=== PATIENT | female | born 1945 | race Caucasian/White ===

== ENCOUNTER 2018-08-12 10:01 | Observation (INO) | payer MEDICARE, OTHER ==
--- NOTE | 2018-08-12 10:21 | ED ---
Neurological HPI - HPI Summary HPI Summary: The pt is a 72 y/o female accompanied by her caregiver presenting to [facility] c/o Left sided tingling and weakness. She denies numbness. The care management specialist visited the patient at home at 08:00 am .The pt had difficulty moving her LUE. After breakfast, the pt was dragging her L foot and had difficulty extending her LUE. She says that the pt talks rapidly and is inattentive, which is different from baseline. Her reports that the pt was "acting manic" today at 07:00 hrs today. She was seen at [facility] and referred to the ED. Her last well known time is 11:00 hrs yesterday. Home Medications Medication Instructions Recorded Confirmed Type oxyCODONE/Acetamin 5/325 MG* 1 - 2 tab PO Q4H PRN #40 tab MDD 10 05/17/16 Rx [Percocet 5/325 TAB*] - History of Current Complaint Chief Complaint: EDAltMentalStatus Stated Complaint: TINGLING AND WEAKNESS ON LEFT SIDE Time Seen by Provider: 08/12/18 10:10 Last Known Well Date: 11:00 hrs 08/11/2018 Hx Obtained From: Family/Social Sciences Chair Onset/Duration: Sudden Onset, Resolved Timing: Sudden Onset Number of Seizures: 0 Neurological Deficit Location: LUE, LLE Pain Intensity: 0 Pain Scale Used: 0-10 Numeric Character: Weak Number of Episodes: 0 Associated Signs and Symptoms: Positive: Weakness. Negative: Numbness - Allergy/Home Medications Allergies/Adverse Reactions: Allergies Allergy/AdvReac Type Severity Reaction Status Date / Time No Known Allergies Allergy Verified 05/15/16 12:32 Home Medications: Home Medications Bupropion XL* [Wellbutrin XL *] 150 mg PO QAM 08/12/18 [History Confirmed ] Mirtazapine TAB* [Remeron TAB*] 15 mg PO BEDTIME 08/12/18 [History Confirmed 03/23] QUEtiapine TAB* [Seroquel 25 MG TAB*] 50 mg PO QPM 08/12/18 [History Confirmed 08/12/18] QUEtiapine XR TAB* [Seroquel Xr 50 MG TAB*] 50 mg PO QAM 08/12/18 [History Confirmed 08/12/18] PMH/Surg Hx/FS Hx/Imm Hx Previously Healthy: No Endocrine/Hematology History: Denies: Hx Anticoagulant Therapy, Hx Blood Disorders, Hx Diabetes, Hx Sickle Cell Disease Cardiovascular History: Denies: Hx Angioplasty, Hx Cardiac Arrest, Hx Congestive Heart Failure, Hx Hypertension, Other Cardiovascular Problems/Disorders Respiratory History: Denies: Other Respiratory Problems/Disorders GI History: Denies: Hx Gastroesophageal Reflux Disease, Other GI Disorders History: Denies: Hx Renal Disease, Other Problems/Disorders Musculoskeletal History: Reports: Hx Arthritis - HANDS Sensory History: Reports: Hx Contacts or Glasses Denies: Hx Hearing Aid Opthamlomology History: Reports: Hx Contacts or Glasses Neurological History: Reports: Other Neuro Impairments/Disorders - currently undergoing neurology consults for neurologic changes Denies: Hx CVA, Hx Dementia, Hx Migraine, Hx Transient Ischemic Attacks (TIA) Psychiatric History: Denies: Hx Anxiety, Hx Depression, Hx Substance Abuse - Cancer History Cancer Type, Location and Year: None reported - Surgical History Surgery Procedure, Year, and Place: RIGHT LEG VARICOSE VEINS SURGERY - 2006 [facility] Hx Anesthesia Reactions: No Infectious Disease History: No Infectious Disease History: Denies: Traveled Outside the [place] in Last 30 Days - Family History Known Family History: Positive: Other - Parkinson's - Social History Occupation: Retired Lives: With Family Alcohol Use: Daily Hx Substance Use: Yes Substance Use Type: Reports: Marijuana - OCCASIONALLY Smoking Status (MU): Former Smoker - 2-3 X YEAR Review of Systems Positive: no symptoms reported Musculoskeletal: Other - Positive: Difficulty extending her LUE, Dragging of the LLE Neurological: Negative - Tingling Positive: Weakness. Negative: Numbness Positive: Other - Positive: 1 manic episode reported All Other Systems Reviewed And Are Negative: Yes Physical Exam - Summary Physical Exam Summary: Appearance: The patient is well-nourished in no acute distress and in no acute pain. She perseverates with speech. Gait is normal. Skin: The skin is warm and dry and skin color reflects adequate perfusion. HEENT: The head is normocephalic and atraumatic. The pupils are equal and reactive. The conjunctivae are clear and without drainage. Nares are patent and without drainage. Mouth reveals moist mucous membranes and the throat is without erythema and exudate. The external ears are intact. The ear canals are patent and without drainage. The tympanic membranes are intact. Neck: The neck is supple with full range of motion and non-tender. There are no carotid bruits. There is no neck vein distension. Respiratory: Chest is non-tender. Lungs are clear to auscultation and breath sounds are symmetrical and equal. Cardiovascular: Heart is regular rate and rhythm. There is no murmur or rub auscultated. There is no peripheral edema and pulses are symmetrical and equal. Abdomen: The abdomen is soft and non-tender. There are normal bowel sounds heard in all four quadrants and there is no organomegaly palpated. Musculoskeletal: There is no back tenderness noted. Extremities are non-tender with full range of motion. There is good capillary refill. There is no peripheral edema or calf tenderness elicited. Neurological: Patient is alert and oriented to person, place and time. The patient has symmetrical motor strength in all four extremities. Cranial nerves are grossly intact. Deep tendon reflexes are symmetrical and equal in all four extremities. Psychiatric: The patient has an appropriate affect and does not exhibit any anxiety or depression. GCS: 15 ; NIH Stroke Scale is limited Triage Information Reviewed: Yes Vital Signs On Initial Exam: Initial Vitals Temp Pulse Resp BP Pulse Ox 97.2 F 93 18 132/64 100 08/12/18 10:02 08/12/18 10:02 08/12/18 10:02 08/12/18 10:02 08/12/18 10:02 Vital Signs Reviewed: Yes Diagnostics - Vital Signs Vital Signs Temp Pulse Resp BP Pulse Ox 08/12/18 10:02 97.2 F 93 18 132/64 100 - Laboratory Result Diagrams: 08/12/18 10:58 08/12/18 10:58 Lab Statement: Any lab studies that have been ordered have been reviewed, and results considered in the medical decision making process. - Radiology CXR Radiology Interpretation Completed By: Radiologist Summary of Radiographic Findings: IMPRESSION: NO ACTIVE CARDIOPULMONARY DISEASE. The ED physician reviewed this radiology report. - CT Brain CT CT Interpretation Completed By: Radiologist - IMPRESSION: NO EVIDENCE FOR GROSS ACUTE INFARCT, MASS EFFECT OR HEMORRHAGE. Summary of CT Findings: IMPRESSION: NO EVIDENCE FOR GROSS ACUTE INFARCT, MASS EFFECT OR HEMORRHAGE. The ED physician reviewed this radiology report. - EKG 11:29 Cardiac Rate: NL - 79 bpm EKG Rhythm: Sinus Rhythm ST Segment: Normal Ectopy: None NIH Scale - NIH Scale Level of Consciousness: Alert/Keenly Responsive Ask Patient the Month and His/Her Age: Both Correct Ask Pt to Open/Close Eyes and Make Up Editor/Release Non-Paretic Hand: Both Correctly Best Gaze (Only Horizontal Eye Movement): Normal Visual Field Testing: No Visual Loss Facial Paresis-Pt to Smile & Close Eyes or Grimace Symmetry: Normal/Symmetrical Motor Function - Right Arm: No Drift-Holds 10 Seconds Motor Function - Left Arm: No Drift-Holds 10 Seconds Motor Function - Right Leg: No Drift-Holds 10 Seconds Motor Function - Left Leg: No Drift-Holds 10 Seconds Limb Ataxia-Must be out of Proportion to Weakness Present: Absent Sensory (Use Pinprick to Test Arms/Legs/Trunk/Face): Normal Best Language (Describe Picture, Name Items): No Aphasia Dysarthria (Read Several Words): Normal Extinction and Inattention: No Abnormality Total Score: 0 NIH Stroke Scale Comment: NIH is limited Course/Dx - Course Course Of Treatment: Ms. Taylor is a very poor historian secondary to dementia. She also was not very cooperative to the exam. I cannot find an obvious focal deficit with a limited neuro exam. Initial workup including CT and labs is negative and I consult with Dr. Breaux. He recommended admission for further workup and I contacted the hospitalist. - Diagnoses Provider Diagnoses: TIA (transient ischemic attack) - Physician Notifications Discussed Care Of Patient With: Alexis Breaux - Neurologist Instructed by Provider To: Will See In ED - Dr. Breaux saw the pt in the ED. The hospitalist agreed to admit the pt. Discharge - Sign-Out/Discharge Documenting (check all that apply): Patient Departure - Discharge Plan Condition: Stable Disposition: ADMITTED TO [facility] - Billing Disposition and Condition Condition: STABLE Disposition: Admitted to [facility] - Attestation Statements Document Initiated by Scribe: Yes Documenting Scribe: Lashell Soler Provider For Whom Ama is Documenting (Include Credential): Dr. Mack Martinez MD Scribe Attestation: Lashell Tolbert , scribed for Dr. Mack Martinez MD on 08/12/18 at 1637. Scribe Documentation Reviewed: Yes Provider Attestation: The documentation as recorded by the scribLashell estrada accurately reflects the service I personally performed and the decisions made by me, Dr. Mack Martinez MD Status of Scribe Document: Viewed
[2018-08-12 11:16] LABS: ABS Basophils 0 10^3/ul (0-0.2); ABS Eosinophils 0 10^3/ul (0-0.6); ABS Lymphocytes 1.5 10^3/ul (1.0-4.8); ABS Monocytes 0.6 10^3/ul (0-0.8); ABS Neutrophils 7.2 10^3/ul (1.5-7.7); ABS Nucleated RBC 0 10^3/ul; Eosinophil % 0.5 %; Hematocrit 40 % (35-47); Hemoglobin 14.2 g/dl (12.0-16.0); Lymphocyte % 16.1 %; Mean Corpuscular HGB Conc 36 g/dl (31-36); Mean Corpuscular Hemoglobin 32 pg (27-31); Mean Corpuscular Volume 90 fL (80-97); Mean Platelet Volume 6.8 fL (7.4-10.4); Nucleated Red Blood Cells % 0.1; Platelet Count 283 10^3/ul (150-450); Red Blood Count 4.43 10^6/ul (4.00-5.40); Red Cell Distribution Width 12 % (10.5-15); White Blood Count 9.3 10^3/ul (3.5-10.8)
[2018-08-12 11:40] LABS: Urine Appearance Turbid; Urine Blood Negative (Negative); Urine Color Amber; Urine Ketones Negative (Negative); Urine Protein Negative (Negative); Urine Specific Gravity 1.015 (1.010-1.030); Urine Urobilinogen Negative (Negative)
[2018-08-12] MEDS ORDERED: Aspirin 81 mg CHEW TAB* 81 MG TAB.CHEW PO ONE (14:12)
--- NOTE | 2018-08-12 16:15 | ECHO ---
Patient: CHUCKY PEREYRA [facility] Rec#: [id number] : 1945 Date: 08/12/2018 Age: 72y Height: 157.48 cm / 62.0 in Weight: 58.97 kg / 130.0 lbs Sex: F BSA: 1.59 Room#: ED8 Admit Date#: 08/12/2018 Type: Inpatient Referring: Griselda Kathleen NP Reading: Kasia Sorenson MD Adjunct History Instructor: Fernanda Allison RDCS CC: Renata Quintero MD Transthoracic Echocardiogram Indication: TIA BP: 119/72 HR: 80 Rhythm: NSR Findings History: Dementia,TIA,former smoker. Technical Comments: The study is technically limited due to the patient's smoking history. Completed at 1520. Left Ventricle: The left ventricular chamber size is decreased. Posterior wall hypertrophy is observed. The estimated ejection fraction is 55-60%. Abnormal left ventricular diastolic function is observed. Left Atrium: The left atrial chamber size is normal. Right Ventricle: The right ventricular cavity size is normal. The right ventricular global systolic function is normal. Right Atrium: The right atrial cavity size is normal. Aortic Valve: The aortic valve is trileaflet. There is no evidence of aortic valve thickening. There is mild aortic regurgitation. There is no evidence of aortic stenosis. Mitral Valve: The mitral valve leaflets are mildly thickened. There is no evidence of mitral regurgitation. There is no evidence of mitral stenosis. Tricuspid Valve: The tricuspid valve leaflets are normal. There is no evidence of tricuspid valve regurgitation. Unable to estimate the right ventricular systolic pressure. There is no tricuspid stenosis. Pulmonic Valve: The pulmonic valve appears normal. There is no evidence of pulmonic regurgitation. There is no pulmonic stenosis. Pericardium: The pericardium appears normal. Aorta: There is no dilatation of the ascending aorta. There is no dilatation of the aortic arch. There is no dilation of the aortic root. Pulmonary Artery: The main pulmonary artery appears normal. Venous: The inferior vena cava appears normal in size. Patient unable to cooperate with sniff. Summary: There was not any prior study for comparison. Conclusions The left ventricular chamber size is decreased. Posterior wall hypertrophy is observed. The estimated ejection fraction is 55-60%. Abnormal left ventricular diastolic function is observed. There is mild aortic regurgitation. Measurements Name Value Normal Range RVIDd (AP) 2D 2.9 cm (0.9 - 2.6) RVDdMajor (2D) 2.3 cm (2.2 - 4.4) RAd ISD 4CH 3.6 cm (3.4 - 4.9) RA (A4C)W 2.5 cm (2.9 - 4.6) IVSd (2D) 1 cm (0.6 - 1) LVPWd (2D) 1.1 cm (0.6 - 1) LVIDd (2D) 3.5 cm (3.6 - 5.4) LVIDs (2D) 2.7 cm - LV FS (2D) 23 % (25 - 45) Aortic Annulus 1.7 cm (1.4 - 2.6) Ao root diameter (2D) 2.3 cm (2.1 - 3.5) Ascending Ao 2.7 cm (2.1 - 3.4) Aortic arch 2.6 cm (1.8 - 3.4) Descending Ao 0.6 cm - LA dimension (AP) 2D 2.6 cm (2.3 - 3.8) LAd ISD 4CH 4.5 cm (2.9 - 5.3) LA ISD 4CH W 3.3 cm (2.5 - 4.5) Name Value Normal Range LA ESV SP 4CH (A/L) 23 ml - LA ESV SP 2CH (A/L) 27 ml - LA ESV BP (A/L) 25 ml - LA ESV BP (A/L) index 15.94 ml/m2 - LA ESV SP 4CH (MOD) 21 ml - LA ESV SP 2CH (MOD) 25 ml - Name Value Normal Range MV E-wave Vmax 0.6 m/sec - MV deceleration time 195 msec - MV A-wave Vmax 0.9 m/sec - MV E:A ratio 0.66 ratio - LV septal e' Vmax 0.07 m/sec - LV lateral e' Vmax 0.09 m/sec - LV E:e' septal ratio 8.57 ratio - LV E:e' lateral ratio 6.67 ratio - Name Value Normal Range AV Vmax 1.6 m/sec - AV VTI 30.6 cm - AV peak gradient 10.45 mmHg - AV mean gradient 4.88 mmHg - LVOT Vmax 1.3 m/sec - LVOT VTI 25.9 cm - LVOT peak gradient 6.35 mmHg - LVOT mean gradient 2.6 mmHg - AR PHT 533 msec - AR peak gradient 65.84 mmHg - Name Value Normal Range IVC diameter 1.5 cm - Name Value Normal Range PV Vmax 1 m/sec - PV peak gradient 3.64 mmHg -
[2018-08-12] MEDS ORDERED: QUEtiapine TAB* 25 MG PO SCH (18:00)
--- NOTE | 2018-08-12 20:14 | CONS ---
NEUROLOGY CONSULTATION: DATE OF CONSULT: 08/12/18 LOCATION: She is in the emergency room. REFERRING PHYSICIAN: Dr. Martinez. CHIEF COMPLAINT: Left-sided weakness. HISTORY OF PRESENT ILLNESS: Mely Taylor is a 72-year-old right-handed woman , who was brought into the hospital by her aide because of weakness on her left side. She was apparently having some difficulty walking and dragging her left foot. Her aide says that she has had weakness in that leg before but it seemed worse than usual. The patient has Alzheimer's disease and is very pleasant and cooperative, but not able to provide any meaningful history. Initial CT scan of the brain was interpreted as normal. There is no prior history of stroke that I am aware of, but the history is limited. PAST MEDICAL HISTORY: Notable for Alzheimer's disease, otherwise unremarkable with limited history. MEDICATIONS: At home, consist of: 1. Remeron 15 mg p.o. q.h.s. 2. Bupropion 150 mg p.o. q.a.m. 3. Quetiapine 50 mg p.o. b.i.d. PHYSICAL EXAM: She is a frail, elderly woman lying in emergency room bed. Temperature 97.2, blood pressures running around 120 to 130 systolic over 70s diastolic, heart rate is in the 80s and seems regular, respiratory rate is 15, and oxygen saturation is 98%. Heart is in a regular rhythm without murmurs. There are no cervical bruits. Neurologic exam: She is alert and pleasantly demented. She tends to repeat everything that is said to her. She answers simple questions and follows simple commands. Pupils react from about 3 down to about 2 mm. Eye movements are full. Visual tang are full to finger counting. Facial musculature is symmetric. Facial sensation to light touch is symmetric. Speech is clear. Motor exam reveals some paratonia, but no spasticity or rigidity. She has antigravity strength in all limbs. Finger taps are slow but symmetrical in the hands. There is no rest tremor. Plantar responses are flexor bilaterally. I did not attempt to ambulate her. LABORATORY DATA: Includes a CBC which is unremarkable and a chemistry profile notable for non-fasting glucose of 112 and otherwise unremarkable. Urinalysis is unremarkable as well. IMPRESSION: Possible worsened left-sided weakness in a patient with advanced Alzheimer's disease. According to her aide, her left side was weaker than it usually is, but there is some baseline weakness anyway. PLAN: We recommend treating her with aspirin at this point in time. She could be put on telemetry to look for atrial fibrillation. Depending upon how aggressive the family wants to be, we could get an MRI scan of her brain or not. I spoke with Dr. Mclaughlin, who she has been a patient in the past and she said that she is a fall risk. I, therefore, do not think any lab evaluation is necessary unless she declines further here in the hospital. [id number]/CPS #: [id number] MTDD
--- NOTE | 2018-08-12 20:48 | HP ---
CC: Dr. Renata Quintero.* HOSPITAL MEDICINE HISTORY AND PHYSICAL: DATE OF ADMISSION: 08/12/18 PRIMARY CARE PHYSICIAN: Dr. Renata Quintero. ATTENDING PHYSICIAN: Dr. Tran Chan * (dictation provided by Griselda Kathleen NP ). CHIEF COMPLAINT: Left-sided weakness, now resolved. HISTORY OF PRESENT ILLNESS: Ms. Taylor is a 72-year-old female with a past medical history of advanced dementia, who presents to the hospital today with concern for left-sided tingling in her arm and worsening left-sided weakness. Ms. Taylor has dementia and therefore is not able to provide a reliable history. Per the report from her and her caregiver, the patient was complaining of tingling in her left arm today. She also seemed to not be able extend the arm fully and they thought perhaps it looked contracted. She also seemed to be dragging her left foot a little bit more than usual. The patient does have left- sided weakness and has had that for about a year, but this symptom seemed much more severe. In the emergency room, Ms. Taylor' symptoms have resolved. She continues to have some mild left-sided weakness, but family feel like this is consistent with her baseline. She had a CT of the brain, showed no evidence of gross acute infarct, mass effect or hemorrhage. She had labs that were unremarkable. Urine shows no evidence of infection. Vitals signs are stable. Chest x-ray shows no acute intrathoracic process. EKG shows a sinus rhythm with no evidence of ischemia. The patient was seen in consultation by Dr. Breaux, who felt based on her symptoms of TIA that an observation stay in the hospital would be appropriate. PAST MEDICAL HISTORY: Dementia. MEDICATIONS: As outpatient are: 1. Mirtazapine 15 mg p.o. at bedtime. 2. Bupropion XL 150 mg p.o. q.a.m. 3. Quetiapine XR 50 mg in the a.m. and quetiapine immediate release 50 mg p.o. q.p.m. ALLERGIES: No known drug allergies. FAMILY HISTORY: Reviewed, noncontributory. SOCIAL HISTORY: No prior alcohol, tobacco, or drug use. The patient lives with her , who is her healthcare proxy. REVIEW OF SYSTEMS: A 14-point review of systems was attempted with Ms. Taylor and all those not mentioned above were negative. Certainly, this was limited by her dementia. PHYSICAL EXAMINATION GENERAL: Ms. Taylor is lying in the bed. She is in no acute distress. VITAL SIGNS: Temperature 97.2, pulse rate 83, respiratory rate 15, O2 saturation 98% on room air, blood pressure 119/72. LUNGS: Clear to auscultation bilaterally with no accessory muscle use and good aeration. HEART: S1, S2. No murmur, rub, or gallop, and regular. ABDOMEN: Soft, nontender with bowel sounds positive x4. EXTREMITIES: No cyanosis or edema. NEURO: She is alert, she is oriented to herself and place. She is constantly repeating things that I say multiple times. She is able to follow commands. She does evidence some pronator drift that is mild in the left upper extremity. The lower extremities appear on gross examination to be equal and symmetric. There is no facial asymmetry or focal weakness. Speech is clear. SKIN: Intact. DIAGNOSTIC STUDIES/LAB DATA: WBC 9.3, hemoglobin 14.2, hematocrit 40, platelet count 283. Sodium 137, potassium 3.9, chloride 103, serum bicarbonate 27, BUN 14, creatinine 0.61, glucose 112, lactic acid 1.3. Urine shows no evidence of infection. CT brain, as per above. Chest x-ray shows no acute process. EKG, again shows sinus rhythm. ASSESSMENT AND PLAN: Ms. Taylor is a 72-year-old female with a past medical history of advanced dementia, who presents today to the hospital with concern for possible worsening of her left-sided weakness, now resolved with concern for transient ischemic attack. Our plans are for observation in the hospital for the followin. Plans are for telemetry monitoring to be observed for atrial fibrillation. Also, an echo has also been recommended. Dr. Breaux at this point does not feel there is an utility to MRI brain and I agree. CT brain is negative, her symptoms have resolved. In terms of her risk factors, her blood pressure is well controlled in the emergency department. We will continue to observe. Her lipid profile will be drawn in the a.m. She has no known history of diabetes. I will add on a hemoglobin A1c. The patient will be given aspirin in the ED and daily. She will have neuro checks. 2. The patient is at high risk for delirium. We will try to avoid any deliriogenic agents and provide supportive care. 3. Code status is DNR. 4. DVT prophylaxis, heparin subcu. TIME SPENT: Approximately 60 minutes was spent on this admission of this patient, more than half the time was spent with the patient at the bedside reviewing the events leading up to this hospitalization with her and her family , performing the physical examination, reviewing the plan of care. GRISELDA KTAHLEEN NP [id number]/CPS #: [id number] NARAYAN
[2018-08-12] MEDS ORDERED: Mirtazapine TAB* 15 MG PO SCH (21:00)
[2018-08-12] MEDS: Heparin VIAL(*) 5000 UNITS/ML VIAL (FIVE THOUSAND) SUBCUT SCH (21:28)
[2018-08-13] MEDS: Heparin VIAL(*) 5000 UNITS/ML VIAL (FIVE THOUSAND) SUBCUT SCH (05:35)
[2018-08-13 07:44] VITALS: BP 133/67
--- NOTE | 2018-08-13 08:17 | PN ---
Subjective Date of Service: 08/13/18 Interval History: Ms. Taylor has advanced dementia but denies any complaint. Her aide is at the bedside and reports that she is at her baseline. Objective Active Medications: Aspirin (Aspirin 81 Mg Chew Tab*) 81 mg PO DAILY KURT Bupropion HCl (Wellbutrin Xl *) 150 mg PO DAILY KURT Heparin Sodium (Porcine) (Heparin Vial(*)) 5,000 units SUBCUT Q8HR KURT Mirtazapine (Remeron Tab*) 15 mg PO BEDTIME KURT Quetiapine Fumarate (Seroquel Tab*) 50 mg PO QPM KURT Quetiapine Fumarate (Seroquel Xr Tab*) 50 mg PO QAM KURT Vital Signs: Temp Pulse Resp BP Pulse Ox 98.3 F 79 16 133/67 100 08/13/18 07:41 08/13/18 07:41 08/13/18 07:41 08/13/18 07:41 08/13/18 07:41 Oxygen Devices in Use Now: None Appearance: Female lying in bed in NAD Eyes: No Scleral Icterus Ears/Nose/Mouth/Throat: Mucous Membranes Moist Neck: Trachea Midline Respiratory: Symmetrical Chest Expansion and Respiratory Effort, Clear to Auscultation Cardiovascular: NL Sounds; No Murmurs; No JVD, No Edema Abdominal: NL Sounds; No Tenderness; No Distention Extremities: No Edema Skin: No Rash or Ulcers Neurological: NL Muscle Strength and Tone, - - Alert and oriented to self Nutrition: Taking PO's Result Diagrams: 08/12/18 10:58 08/12/18 10:58 Assess/Plan/Problems-Billing Assessment: Ms. Taylor is a 72 yo F with a PMH of dementia who was admitted on 08/12/18 with left sided weakness and tingling now resolved with concern for TIA. - Patient Problems (1) TIA (transient ischemic attack) Comment: - CT brain negative - No events noted on telemetry, echo without wall motion - Plan to start aspirin and atorvastatin for stroke prevention, BP well controlled, HgbA1c 5.0, LDL 104 (2) Dementia Comment: - Supportive care (3) DVT prophylaxis Comment: - Heparin Sq. (4) DNR (do not resuscitate) Comment: Status and Disposition: OBV. Discharge to home.
[2018-08-13] MEDS ORDERED: BuPROPion XL* 150 MG TAB.XL PO SCH (09:00)
[2018-08-13] MEDS ORDERED: Aspirin 81 mg CHEW TAB* 81 MG TAB.CHEW PO SCH (09:00)
[2018-08-13] MEDS ORDERED: QUEtiapine XR TAB* 50 MG PO SCH (09:00)
--- NOTE | 2018-08-13 11:22 | DS ---
CC: Dr. Quintero * [facility] MEDICINE DISCHARGE SUMMARY: DATE OF ADMISSION: 08/12/18 DATE OF DISCHARGE: 08/13/18 PRIMARY CARE PHYSICIAN: Dr. Quintero. ATTENDING PHYSICIAN: Dr. Raz Leavitt * (dictation provided by Griselda Kathleen NP). PRIMARY DIAGNOSIS: Transient ischemic attack. SECONDARY DIAGNOSIS: Alzheimer's dementia. MEDICATIONS AT THE TIME OF DISCHARGE: 1. Aspirin 81 mg p.o. q. day. 2. Atorvastatin 40 mg p.o. q. day. 3. Mirtazapine 50 mg p.o. at bedtime. 4. Bupropion XL 150 mg p.o. q.a.m. 5. Quetiapine XR 50 mg p.o. q.a.m. 6. Quetiapine immediate release 50 mg p.o. q.p.m. HOSPITAL COURSE: Ms. Taylor is a 72-year-old female who presented to the emergency room on 08/12/18 with concern for transient worsening of left-sided weakness with left arm tingling. Please see dictated H and P by myself for complete details. In brief, the patient has advanced dementia, but there was concern that the patient had worsening of her left-sided weakness with complaint of left arm tingling, which led to the presentation here for evaluation. In the emergency room, the patient's symptoms had resolved. She had a CT brain, which showed no acute abnormality. The reminder of workup was negative. Ms. Taylor was observed in the hospital overnight. She had no episodes of atrial fibrillation. She had an echocardiogram, which showed normal wall motion and ejection fraction. No valvular abnormalities. Ms. Taylor is medically stable for discharge to home. Her blood pressure is normal. She has a LDL of 104. For that reason, I am starting a moderate dose of atorvastatin for stroke prevention. Her hemoglobin A1c is 5.0. Also plan to start aspirin for stroke prevention as she was not taking this previously. She will be following up with Dr. Quintero as needed after this acute hospitalization. DISPOSITION: Home DIET: Regular ACTIVITY: As tolerated FOLLOW UP PLANS: With Dr. Quintero as indicated within the next 3-7 days. TIME SPENT: Approximately 60 minutes were spent in the discharge of this patient, more than half time spent with the patient at the bedside reviewing the events leading up to this hospitalization, performing the physical examination, and reviewing my plan of care. GRISELDA KATHLEEN NP [id number]/[facility] #: [id number] NARAYAN
== END 2018-08-13 11:20 | disposition home or self-care (01) ==
LOC: ED 10:01 → MEDTELE 13:20
PROVIDERS: ADMIT Hospitalist; ATTEND Internal Medicine
DX: G45.9 Transient cerebral ischemic attack, unspecified (principal); G30.9 Alzheimer's disease, unspecified; F02.80 Dementia in other diseases classified elsewhere, unspecified severity, without behavioral disturbance, psychotic disturbance, mood disturbance, and anxiety; Z79.82 Long term (current) use of aspirin; R53.1 Weakness; Z87.891 Personal history of nicotine dependence
CPT/HCPCS: 36415; 70450; 71045; 80053; 80061; 81003; 83036; 83605; 84484; 85025; 93005; 93306; 99284; A9270-GY; G0378; J1644

== ENCOUNTER 2018-12-22 20:12 | Emergency (ER) | payer MEDICARE, OTHER ==
--- OUTSIDE RECORDS SUMMARY | 2018-12-22 20:31 | XMS REPORT | Continuity of Care Document ---
:1945 External Reference #:[id number] Author Name Lauren Farfan PA-C Address [address] [place] [address] Care Team Providers Name Role Phone Lilly Chiang MD Care Team Information Rotary Driller Unavailable Lilly Chiang MD Primary Care Physician Unavailable Payers Date Identification Numbers Payment Provider Subscriber Policy Number: [id number] Medicare Mely Taylor PayID: [id number] [facility] [address] [facility] [place] [address] Policy Number: [id number] [employer] Mely Taylor PayID: [id number] [address] [place] [address] Advance Directives Description No Information Available Problems Date Description Provider Status Onset: 12/15/2018 Gastrointestinal tract finding Lauren Farfan PA-C Active Family History Description No Information Available Social History Type Date Description Comments Sex Unknown Tobacco Use Start: Unknown Patient is a current smoker, smokes some days Smoking Status Reviewed: 12/15/18 Patient is a current smoker, smokes some days Allergies, Adverse Reactions, Alerts Description No Known Drug Allergies Medications Medication Date Status Form Strength Qnty SIG Indications Ordering Provider Aspirin Active Chewtabs 81mg Chew 1 Unknown 000 Tablet By Mouth Every Day Mirtazapine Active Tablets 15mg Take 1 Unknown 000 Tablet By Mouth Nightly Cephalexin Active Capsules 500mg Take 1 Unknown 000 Capsule By Mouth Three Times Daily For 7 Days Atorvastatin Active Tablets 40mg Unknown Calcium 000 Azithromycin Active Tablets 250mg Unknown 000 Bupropion Active Tablets ER 150mg 1 by Unknown Hydrochloride ER 000 24HR mouth (XL) every day Quetiapine Active Tablets 25mg Unknown Fumarate 000 Quetiapine Active Tablets ER 50mg Unknown Fumarate ER 000 24HR Miralax Active Powder use 1 Unknown 000 capful daily or as needed for constipat ion. Tylenol Extra Active Tablets 500mg 2 tabs by Unknown Strength 000 mouth q12hrs as needed Immunizations Description No Information Available Vital Signs Date Vital Result Comment 12/15/2018 1:34pm Weight 138.00 lb per , pt can't stand on scale BP Systolic 104 mmHg BP Diastolic 73 mmHg Heart Rate 97 /min Results Test Date Facility Test Result H/L Range Note CMP(!) 11/17/2018 [facility] Sodium(!) <pending> Potassium(!) <pending> Chloride Serum/Plasma(!) <pending> Carbon Dioxide Ser/Plasm(!) <pending> BUN - Urea Nitrogen(!) <pending> Calcium Ser/Plasma Mass/Vol(!) <pending> Creatinine Serum Mass/Vol(!) <pending> Glucose Serum(!) <pending> BUN/Creatinine Ratio(!) <pending> Albumin Serum/Plasma(!) <pending> Alkaline Phosphatase(!) <pending> Bilirubin Total Mass/Vol(!) <pending> Ast - Sgot <pending> Alt - SGPT <pending> Protein Total <pending> Laboratory test 11/17/2018 [facility] TSH Thyroid Stim <pending> finding Hormone(!) Laboratory test 11/17/2018 [facility] D-Dimer QN <pending> finding CBC W/Auto 11/07/2018 [facility] White Blood Count <pending> Differential(!) Ser Auto CNT RBC Red Blood Count <pending> Hemoglobin Blood <pending> Hematocrit <pending> MCV (Corpuscular Volume) <pending> MCH (Corpuscular Hemoglobin) <pending> MCHC (Corpuscular Hemog Conc) <pending> RDW <pending> Platelet Count Blood Auto CNT <pending> MPV <pending> Lymph% <pending> [place]% <pending> Neutrophil % <pending> Absolute Lymphocytes <pending> Absolute Monocytes <pending> Absolute Neutrophils <pending> Procedures Description No Information Available Encounters Description No Information Available Plan of Treatment Future Appointment(s):12/22/2018 1:00 pm - Nolan Mg DO at [facility]12/15/2018 - DONATO [id number] Abnormal findings on diagnostic imaging of other parts of digestive tract
--- NOTE | 2018-12-22 22:36 | ED ---
Head Injury - HPI Summary HPI Summary: 73-year-old female with history of dementia presents with her for a head injury and left hand injury after a fall at the [facility] at around 7:30 this evening. states patient was sitting in a loveseat and attempted to get up and lost her balance falling to the floor. states that patient was at this facility earlier today for an EGD and head CT. Reports the head CT was obtained because the patient has had increasing difficulty ambulating recently. denies any loss of consciousness and states she has been acting at her baseline since the injury. 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 Hx From Patient Unobtainable Due To: Dementia Mechanism Of Injury: Fall From A Standing Position Pain Intensity: 0 - Allergies/Home Medications Allergies/Adverse Reactions: Allergies Allergy/AdvReac Type Severity Reaction Status Date / Time No Known Allergies Allergy Verified 12/22/18 20:21 PMH/Surg Hx/FS Hx/Imm Hx Endocrine/Hematology History: Denies: Hx Anticoagulant Therapy, Hx Blood Disorders, Hx Diabetes, Hx Sickle Cell Disease Cardiovascular History: Reports: Hx Hypercholesterolemia Denies: Hx Angioplasty, Hx Cardiac Arrest, Hx Congestive Heart Failure, Hx Coronary Artery Disease, Hx Hypertension, Hx Pacemaker/ICD, Other Cardiovascular Problems/Disorders Respiratory History: Denies: Other Respiratory Problems/Disorders GI History: Denies: Hx Gastroesophageal Reflux Disease, Other GI Disorders History: Denies: Hx Dialysis, Hx Renal Disease, Other Problems/Disorders Musculoskeletal History: Reports: Hx Arthritis - HANDS Sensory History: Reports: Hx Contacts or Glasses Denies: Hx Hearing Aid, Other Sensory Impairments Opthamlomology History: Reports: Hx Contacts or Glasses Denies: Other Sensory Impairments Neurological History: Reports: Hx Dementia, Other Neuro Impairments/Disorders - currently undergoing neurology consults for neurologic changes Denies: Hx CVA, Hx Migraine, Hx Transient Ischemic Attacks (TIA) Psychiatric History: Denies: Hx Anxiety, Hx Depression, Hx Panic Disorder, Hx Substance Abuse - Cancer History Cancer Type, Location and Year: None reported - Surgical History Surgery Procedure, Year, and Place: RIGHT [place]G VARICOSE [place] [facility] [place] REPAIR BROKEN RIGHT RADIUS AND ULNA MAY 2016 Hx Anesthesia Reactions: No Infectious Disease History: No Infectious Disease History: Denies: Traveled Outside the [place] in Last 30 Days - Family History Known Family History: Positive: Other - Parkinson's - Social History Alcohol Use: None Alcohol Amount: unk Hx Substance Use: Yes Substance Use Type: Reports: Marijuana Substance Use Comment - Amount & Last Used: unk Smoking Status (MU): Former Smoker Review of Systems Negative: Fever, Chills Negative: Epistaxis Positive: Other - Unable to determine Positive: Other - Unable to determine Negative: Vomiting, Diarrhea, Nausea Genitourinary: Other - Unable to determine Musculoskeletal: Other - Unable to determine Positive: Bruising - left hand, Other - superfical skin tear left hand Neurological: Other - Unable to determine All Other Systems Reviewed And Are Negative: Yes Physical Exam - Summary Physical Exam Summary: GENERAL APPEARANCE: Older adult female with flat affect, makes eye contact and responds to voice, and appears to be in no acute distress. HEAD: Normocephalic. Small hematoma noted to the left forehead. EYES: Conjunctiva clear. No drainage. PERRL. EARS: External auditory canals and tympanic membranes clear, hearing grossly intact. NOSE: No nasal discharge. NECK: Neck supple, no grimacing noted with palpation, no obvious deformities or step-offs noted. CARDIAC: Normal S1 and S2. No S3, S4 or murmurs. Rhythm is regular. There is no peripheral edema, cyanosis or pallor. Extremities are warm and well perfused. Capillary refill is less than 2 seconds. Peripheral pulses intact. LUNGS: Clear to auscultation without rales, rhonchi, wheezing or diminished breath sounds. ABDOMEN: Positive bowel sounds. Soft, nondistended. No grimacing noted with palpation. No masses or hepatosplenomegally. MUSKULOSKELETAL: Passive ROM intact to all extremities with no grimacing observed. No joint erythema or tenderness. BACK: Examination of the spine reveals no spinal deformity or muscular spasm. No grimacing noted with palpation. EXTREMITIES: Significant ecchymosis noted to the radial aspect of the dorsal left hand over the web space with a small superficial skin tear noted. No gross deformity. Bleeding controlled. NEUROLOGICAL: Neurological assessment limited by patient's underlying dementia. SKIN: Skin normal color. Triage Information Reviewed: Yes Vital Signs On Initial Exam: Initial Vitals Temp Pulse Resp BP Pulse Ox 99.7 F 88 16 127/102 98 12/22/18 20:15 12/22/18 20:15 12/22/18 20:15 12/22/18 20:15 12/22/18 20:15 Vital Signs Reviewed: Yes Diagnostics - Vital Signs Vital Signs Temp Pulse Resp BP Pulse Ox 12/22/18 22:00 98.9 F 79 16 130/102 97 12/22/18 20:15 99.7 F 88 16 127/102 98 - Laboratory Lab Statement: Any lab studies that have been ordered have been reviewed, and results considered in the medical decision making process. - Radiology No standard instances Radiology Interpretation Completed By: ED Physician - Possible non-displaced fracture of the proximal phalanx of the left thumb. - CT No standard instances CT Interpretation Completed By: Radiologist Summary of CT Findings: CT Head Without Contrast. EXAM DATE/TIME: 12/22/2018 11 :00 PM. CLINICAL HISTORY: 73 years old, female; Injury or trauma; Fall; Additional info: Head injury S/P. fall, HX dementia. TECHNIQUE: Imaging protocol: Axial computed tomography images of the head/brain without. contrast. Radiation optimization: All CT scans at this facility use at least one of. these dose optimization techniques: automated exposure control; mA and/ or kV. adjustment per patient size (includes targeted exams where dose is matched to. clinical indication); or iterative reconstruction. COMPARISON: BRAIN WO CT BRAIN WO 12/22/2018 3:00 PM. FINDINGS: Brain: There are moderate periventricular and subcortical lucencies consistent. with chronic microvascular ischemic changes.mild right frontal volume loss,. unchanged. Ventricles: Normal. No ventriculomegaly. Bones/joints: Unremarkable. No acute fracture. Sinuses: Extensive mucosal thickening of bilateral maxillary, sphenoid and. ethmoid sinuses. Mastoid air cells: Visualized mastoid air cells are unremarkable. No mastoid. effusion. Soft tissues: Unremarkable. Other findings: Motion and streak artifact degrades the images. IMPRESSION: No acute intracranial abnormality. Paranasal sinus mucosal disease as described above. EXAM: CT Cervical Spine Without Contrast. EXAM DATE/TIME: 11:07 PM. CLINICAL HISTORY: 73 years old, female; Injury or trauma; Fall; Initial encounter; Blunt trauma;. Additional info: Fall, history of dementia. TECHNIQUE: Imaging protocol: Axial computed tomography images of the cervical spine. without intravenous contrast. Coronal and sagittal reformatted images were. created and reviewed. Radiation optimization: All CT scans at this facility use at least one of. these dose optimization techniques : automated exposure control; mA and/or kV. adjustment per patient size ( includes targeted exams where dose is matched to. clinical indication); or iterative reconstruction. COMPARISON: No relevant prior studies available. FINDINGS: Vertebrae: No acute fracture. No spondylolisthesis. Discs/Spinal canal/Neural foramina: No spinal stenosis. No neural foraminal. narrowing. Soft tissues: Unremarkable. Lungs: Lung apices are normal. Other findings: Motion artifact degrades the images. IMPRESSION: No acute abnormality. Head Injury Course/Dx Course Of Treatment: 73-year-old female with history of dementia presents with her for a head injury and left hand injury after a fall at the [facility] at around 7:30 this evening. states patient was sitting in a loveseat and attempted to get up and lost her balance falling to the floor. states that patient was at this facility earlier today for an EGD and head CT. Reports the head CT was obtained because the patient has had increasing difficulty ambulating recently. denies any loss of consciousness and states she has been acting at her baseline since the injury. Afebrile. Vital signs stable. Exam was limited by her underlying dementia and was remarkable for a small hematoma to the left forehead and ecchymosis to the radial aspect of her left hand over the webspace with a small superficial skin tear. No gross deformity was noted. A noncontrasted CT of the head and C- spine as well as plain film of the left hand was obtained. CT of the head and neck were normal. My preliminary reading of the left hand x-ray was positive for a possible nondisplaced fracture of the proximal phalanx of the left thumb. I cleansed and repaired the skin tear with a Steri-Strip and skin adhesive and a bandage was applied by the RN. The RN placed the patient in a Velcro thumb spica splint. Circulation and sensation were checked by myself and was normal pre-and post-application. She is to follow-up with her primary care provider in one to 2 days. Anticipatory guidance and warning symptoms were reviewed with the . Verbalizes understanding and agrees with plan of care. - Diagnoses Differential Diagnosis/HQI/PQRI: Concussion Without LOC, Contusion, Hematoma, Intracranial Bleed, Laceration, Other - fracture, dislocation Provider Diagnoses: Closed head injury without loss of consciousness, Skin tear of left hand without complication, Fracture of proximal phalanx of left thumb Discharge - Sign-Out/Discharge Documenting (check all that apply): Patient Departure Patient Received Moderate/Deep Sedation with Procedure: No - Discharge Plan Condition: Stable Disposition: HOME Patient Education Materials: Head Injury (ED), Thumb Fracture (ED), Skin Adhesive Care (ED), Skin Tear (ED), Steristrips (ED) Referrals: Lilly Chiang MD [Primary Care Provider] - 2 Days Additional Instructions: The CT scan of the head and neck were normal. There is a hematoma to the forehead and no other injuries noted. The skin tear to the left hand was repaired tonight using a Steri-Strip hand skin adhesive. The adhesive will slowly wear off over the next several days. Keep the adhesive dry for the next 24 hours. After 24 hours you may shower and wash your hands as ususal. Do not apply any lotions or ointments to the adhesive as this may dissolve the adhesive and cause the wound to reopen. The Steri-Strips will slowly peel up from the ends over the next few days. You may trim the ends as needed but do not pull off or you may reopen the wound. Keep the wound covered with a dressing. Change this at least once a day or anytime the dressing becomes wet or soiled. The hand x-ray performed tonight was suspicious for a nondisplaced fracture of the thumb. The radiologist will be reviewing the x-ray tomorrow and we will contact you if there is any change in the plan of care. Wear the thumb spica splint that was applied in the emergency room tonight until you follow up for the injury. Rest the hand as much as possible. Apply ice to the affected area for 15-20 minutes at least 4 times a day to help reduce swelling. Try to keep the hand elevated to reduce swelling. Follow-up with your primary care provider in one to 2 days for recheck of symptoms. Seek immediate medical attention in the emergency room if there is any difficulty arousing the patient, she has any abnormal behavior, one pupil is larger than the other, she develops any fever, has redness, swelling, or pus draining from the wound on her hand, or any worsening of symptoms. - Maximing Disposition and Condition Condition: STABLE Disposition: Home
[2018-12-23 01:01] VITALS: BP 114/69
== END 2018-12-23 01:02 | disposition home or self-care (01) ==
LOC: ED 20:12
DX: S09.90XA Unspecified injury of head, initial encounter (principal); S61.412A Laceration without foreign body of left hand, initial encounter; S62.512A Displaced fracture of proximal phalanx of left thumb, initial encounter for closed fracture; W19.XXXA Unspecified fall, initial encounter; Y92.129 Unspecified place in nursing home as the place of occurrence of the external cause; F03.90 Unspecified dementia, unspecified severity, without behavioral disturbance, psychotic disturbance, mood disturbance, and anxiety; E78.00 Pure hypercholesterolemia, unspecified; Z87.891 Personal history of nicotine dependence
CPT/HCPCS: 12001; 70450; 72125; 99282

== ENCOUNTER 2019-11-26 14:29 | Inpatient (IN) | payer MEDICARE, OTHER ==
--- NOTE | 2019-11-26 14:54 | ED ---
HPI Febrile Illness - HPI Summary HPI Summary: 74 y/o female presented to [facility] after 1 week of eating less than normal with possible aspiration. On 11/22/19 pt was seen with a positive UA and cultures positive for pseudomonas. Pt was given abx for 2 days but does not remember the abx name. Pt has a low grade fever of 99.9F today and episodes of hypoxia showing sat of 85-99 on RA. Pt also has a cough. 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 Medications reviewed. Allergies noted. Home Medications Medication Instructions Recorded Confirmed Type Bupropion XL* [Wellbutrin XL *] 150 mg PO QAM 08/12/18 11/26/19 History Aspirin 81 mg CHEW TAB* 81 mg PO DAILY #30 tab.chew 09/19/18 11/26/19 Rx L.acidoph,Paracasei, B.lactis 2 cap PO DAILY 12/11/18 11/26/19 History [Probiotic] Melatonin 10 mg PO BEDTIME 12/11/18 11/26/19 History Polyethylene Glycol 3350 [Miralax] 17 gm PO DAILY 12/11/18 11/26/19 History Acetaminophen [Tylenol Extra 500 mg PO Q6HR 12/19/18 11/26/19 History Strength] Mirtazapine TAB* [Remeron TAB*] 15 mg PO BEDTIME 12/19/18 11/26/19 History Ciprofloxacin HCl [Cipro] 250 mg PO BID 11/26/19 11/26/19 History Omeprazole 40 mg PO DAILY 11/26/19 11/26/19 History Pediatric Multivitamin No.17 2 each PO DAILY 11/26/19 11/26/19 History [Children's Chew Multivitamin] Tea Tree Oil [Tea Tree] 1 applic TOPICAL DAILY 11/26/19 11/26/19 History - History of Current Complaint Chief Complaint: EDFever Hx Obtained From: Patient, EMS Hx From Patient Unobtainable Due To: Dementia Onset/Duration: Started Days Ago Timing: Lasting Days Current Severity: None Pain Intensity: 0 Pain Scale Used: 0-10 Numeric Aggravating Factors: Nothing Alleviating Factors: Nothing Associated Signs and Symptoms: Cough, Other: - decreased oral intake, hypoxia, fever - Additional Pertinent History Primary Care Physician: ARNOLD - Allergy/Home Medications Allergies/Adverse Reactions: Allergies Allergy/AdvReac Type Severity Reaction Status Date / Time No Known Allergies Allergy Verified 11/26/19 14:43 Home Medications: Home Medications Bupropion XL* [Wellbutrin XL *] 150 mg PO QAM 08/12/18 [History Confirmed ] Aspirin 81 mg CHEW TAB* 81 mg PO DAILY #30 tab.chew 09/19/18 [Rx Confirmed 11/25] L.acidoph,Paracasei, B.lactis [Probiotic] 2 cap PO DAILY 12/11/18 [History Confirmed 11/26/19] Melatonin 10 mg PO BEDTIME 12/11/18 [History Confirmed 11/26/19] Polyethylene Glycol 3350 [Miralax] 17 gm PO DAILY 12/11/18 [History Confirmed ] Acetaminophen [Tylenol Extra Strength] 500 mg PO Q6HR 12/19/18 [History Confirmed 11/26/19] Mirtazapine TAB* [Remeron TAB*] 15 mg PO BEDTIME 12/19/18 [History Confirmed ] Ciprofloxacin HCl [Cipro] 250 mg PO BID 11/26/19 [History Confirmed 11/26/19] Levofloxacin TAB* [Levaquin 750 MG TAB*] 750 mg PO DAILY 7 Days #7 tab 11/26/19 [Rx] Omeprazole 40 mg PO DAILY 11/26/19 [History Confirmed 11/26/19] Pediatric Multivitamin No.17 [Children's Chew Multivitamin] 2 each PO DAILY [History Confirmed 11/26/19] Tea Tree Oil [Tea Tree] 1 applic TOPICAL DAILY 11/26/19 [History Confirmed 11/25] PMH/Surg Hx/FS Hx/Imm Hx Endocrine/Hematology History: Denies: Hx Anticoagulant Therapy, Hx Blood Disorders, Hx Diabetes, Hx Sickle Cell Disease Cardiovascular History: Reports: Hx Hypercholesterolemia Denies: Hx Angioplasty, Hx Cardiac Arrest, Hx Congestive Heart Failure, Hx Coronary Artery Disease, Hx Hypertension, Hx Pacemaker/ICD, Other Cardiovascular Problems/Disorders Respiratory History: Denies: Other Respiratory Problems/Disorders GI History: Denies: Hx Gastroesophageal Reflux Disease, Other GI Disorders History: Denies: Hx Dialysis, Hx Renal Disease, Other Problems/Disorders Musculoskeletal History: Reports: Hx Arthritis - HANDS Sensory History: Reports: Hx Contacts or Glasses Denies: Hx Hearing Aid, Other Sensory Impairments Opthamlomology History: Reports: Hx Contacts or Glasses Denies: Other Sensory Impairments Neurological History: Reports: Hx Dementia, Other Neuro Impairments/Disorders - currently undergoing neurology consults for neurologic changes Denies: Hx CVA, Hx Migraine, Hx Transient Ischemic Attacks (TIA) Psychiatric History: Denies: Hx Anxiety, Hx Depression, Hx Panic Disorder, Hx Substance Abuse - Cancer History Cancer Type, Location and Year: None reported - Surgical History Surgery Procedure, Year, and Place: RIGHT LEG VARICOSE VEINS SURGERY - 2006 [facility] [place]. 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 Positive: Fever Positive: Cough, Other - hypoxia Positive: Other - decreased oral intake All Other Systems Reviewed And Are Negative: No Physical Exam - Summary Physical Exam Summary: Constitutional: Well-developed, Well-nourished, Alert. (-) Distressed Skin: Warm, Dry HENT: Normocephalic; Atraumatic Eyes: Conjunctiva normal Neck: Musculoskeletal ROM normal neck. (-) JVD, (-) Stridor, (-) Tracheal deviation Cardio: Rhythm regular, rate normal, Heart sounds normal; Intact distal pulses; Radial pulses are 2+ and symmetric. (-) Murmur Pulmonary/Chest wall: Effort normal. (-) Respiratory distress, (-) Wheezes, (-) Rales, No coughing Abd: Soft, (-) tenderness, (-) Distension, (-) Guarding, (-) Rebound Musculoskeletal: (-) Edema Lymph: (-) Cervical adenopathy Neuro: Not alert or oriented x3 Psych: Mood and affect Normal, Severe echolalia Triage Information Reviewed: Yes Vital Signs On Initial Exam: Initial Vitals Temp Pulse Resp BP Pulse Ox 99.9 F 110 19 108/83 96 11/26/19 14:39 11/26/19 14:39 11/26/19 14:39 11/26/19 14:39 11/26/19 14:39 Vital Signs Reviewed: Yes Procedures - Sedation Patient Received Moderate/Deep Sedation with Procedure: No Diagnostics - Vital Signs Vital Signs Temp Pulse Resp BP Pulse Ox 11/26/19 14:39 99.9 F 110 19 108/83 96 - Laboratory Result Diagrams: 11/26/19 15:50 11/26/19 16:52 Lab Statement: Any lab studies that have been ordered have been reviewed, and results considered in the medical decision making process. - Radiology cxr Radiology Interpretation Completed By: Radiologist Summary of Radiographic Findings: IMPRESSION: 1. Hypoinflated lungs with mild left basilar airspace opacification (atelectasis versus. infiltrate). This report was reviewed by the ED physician. Re-Evaluation - Re-Evaluation First Eval Re-Evaluation Time: 16:29 Comment: of pt was briefed on the case and prefers her to be discharged. Second Eval Re-Evaluation Time: 18:04 Comment: Pt's HR was less than 100 Course/Dx - Course Course Of Treatment: Patient was sent in from her assisted living facility with supposedly hypoxemia and low-grade fever. Patient had a MAXIMUM TEMPERATURE of 99.9. Patient was never hypoxic here. Patient had a UA on Wednesday which did grow Pseudomonas but only at 25,000 colony-forming units. Patient had blood performed here which showed a mild leukocytosis. Patient was found to be hypernatremic with a sodium of 154. Patient's UA was consistent with a UTI. Patient had chest x-ray which showed a possible left lower lobe infiltrate versus atelectasis. Patient's medical power of defense attorney was called and he would prefer her to not be admitted to the hospital. Patient was given 2 L IV fluid with improvement in her heart rate. Patient's antibiotics were switched from ciprofloxacin to levofloxacin to cover for pneumonia and her UTI. Given patient's symptoms at her assisted living facility, patient was tested for Covid 19. Patient was discharged back to her assisted living facility. - Diagnoses Provider Diagnoses: Hypernatremia, UTI (urinary tract infection), Leukocytosis, Dementia - Provider Notifications Discussed Care Of Patient With: Lilly Chiang Time Discussed With Above Provider: 14:42 Instructed by Provider To: Other - Pt case was discussed with Dr. Chiang, who will call the facility to see what the policy is for sending pts back after COVID-19 testing, and will call back. At [address] Mcgrath that she can be sent back to the facility. Discharge ED - Sign-Out/Discharge Documenting (check all that apply): Patient Departure - dc - Discharge Plan Condition: Stable Disposition: HOME Prescriptions: Levofloxacin TAB* [Levaquin 750 MG TAB*] 750 mg PO DAILY 7 Days #7 tab Patient Education Materials: Urinary Tract Infection in Older Adults (ED) Print Language: CHINESE Forms: COVID-19 Tested & Isolation Referrals: Lilly Chiang MD [Primary Care Provider] - Additional Instructions: You were seen in the emergency department for coronavirus rule out. The department of health will contact you within 24 hours. Due to the pandemic, you should stay in your house and self quarantine. See the separate quarantine paper for further instructions. You should wear a mask if you're outside of your personal room. We encourage handwashing as well as limited contact with other people including the elderly and the immunocompromised. If any studies were not completed at the time of discharge you will be called with the relevant results. Please switch your antibiotic to the one I prescribed today. There is questionable pneumonia on chest xray and this antibiotic will cover your UTI ( based off of culture) and your possible pneumonia. Please return if you have worsening fever, cough, trouble breathing, flank pain , vomiting, mental status, or any other concerning symptoms You were found to have very high sodium levels and need to drink lots of water. Pleade get your level rechecked in 1-3 days It was a pleasure taking care of you today. - Billing Disposition and Condition Condition: STABLE Disposition: Home - Attestation Statements Document Initiated by Ama: Yes Documenting Scribe: Jasvir Ferguson Provider For Whom Ama is Documenting (Include Credential): Michael Mcgrath MD Scribe Attestation: Jasvir Tolbert, scribed for Michael Mcgrath MD on 11/26/19 at 1916. Scribe Documentation Reviewed: Yes Provider Attestation: The documentation as recorded by the Jasvir tanner accurately reflects the service I personally performed and the decisions made by me, Michael Mcgrath MD Status of Scribe Document: Viewed
[2019-11-26 16:05] LABS: Urine Appearance Cloudy; Urine Bilirubin Negative (Negative); Urine Blood Negative (Negative); Urine Color Amber; Urine Glucose Negative (Negative); Urine Ketones Negative (Negative); Urine Nitrite Negative (Negative); Urine Protein 1+(30 mg/dL) (Negative); Urine Specific Gravity 1.028 (1.010-1.030); Urine Urobilinogen Negative (Negative)
[2019-11-26 16:07] LABS: ABS Eosinophils 0.3 10^3/ul (0-0.6); ABS Lymphocytes 2.3 10^3/ul (1.0-4.8); ABS Monocytes 0.9 10^3/ul (0-0.8); ABS Neutrophils 11.1 10^3/ul (1.5-7.7); Eosinophil % 1.9 %; Hematocrit 41 % (35-47); Hemoglobin 13.5 g/dL (12.0-16.0); Lymphocyte % 15.7 %; Mean Corpuscular HGB Conc 33 g/dL (31-36); Mean Corpuscular Hemoglobin 32 pg (27-31); Mean Corpuscular Volume 95 fL (80-97); Mean Platelet Volume 9.3 fL (7.4-10.4); Platelet Count 275 10^3/uL (150-450); Red Blood Count 4.25 10^6 /uL (3.70-4.87); Red Cell Distribution Width 13 % (10-15); Urine Bacteria Absent (Absent); Urine Red Blood Cell Absent (Absent); Urine White Blood Cell 3+(>20/hpf) (Absent); White Blood Count 14.5 10^3/uL (3.5-10.8)
[2019-11-26 16:20] LABS: ALT 44 U/L (7-52); Albumin 3.6 g/dL (3.2-5.2); Albumin/Globulin Ratio 0.9 (1-3); Alkaline Phosphatase 97 U/L (34-104); BUN/Creatinine Ratio 34.8 (8-20); Blood Urea Nitrogen 31 mg/dL (6-24); CO2 Carbon Dioxide 25 mmol/L (22-32); Calcium 9.4 mg/dL (8.6-10.3); EGFR African American 75.4 (>60); EGFR Non-African American 62.3 (>60); Globulin 3.9 g/dL (2-4); Glucose 111 mg/dL (70-100); Total Protein 7.5 g/dL (6.4-8.9)
[2019-11-26] MEDS ORDERED: NS 0.9% 1000 ML** 1,000 ML IV ONE ×2 (16:21→17:37)
[2019-11-26] MEDS ORDERED: Acetaminophen TAB* 325 MG PO ONE (16:21)
[2019-11-26 16:24] LABS: Sodium 157 mmol/L (135-145)
[2019-11-26 16:25] LABS: Chloride 123 mmol/L (101-111)
[2019-11-26 16:38] LABS: Anion Gap 9 mmol/L (2-11)
[2019-11-26 17:18] LABS: Potassium Redraw 3.6 mmol/L (3.5-5.0)
--- NOTE | 2019-11-26 19:50 | ED ---
Progress - Progress Note Progress Note: After discharge the facility called back and stated they have changed their policy and will not take back pts who have been tested for COVID-19. At 1956 pt case was discussed with Dr. Clay, who accepts the pt for admission. Re-Evaluation - Re-Evaluation First Eval Re-Evaluation Time: 16:29 Comment: of pt was briefed on the case and prefers her to be discharged. Second Eval Re-Evaluation Time: 18:04 Comment: Pt's HR was less than 100 Course/Dx - Course Course Of Treatment: Patient was sent in from her assisted living facility with supposedly hypoxemia and low-grade fever. Patient had a MAXIMUM TEMPERATURE of 99.9. Patient was never hypoxic here. Patient had a UA on Wednesday which did grow Pseudomonas but only at 25,000 colony-forming units. Patient had blood performed here which showed a mild leukocytosis. Patient was found to be hypernatremic with a sodium of 154. Patient's UA was consistent with a UTI. Patient had chest x-ray which showed a possible left lower lobe infiltrate versus atelectasis. Patient's medical power of sports attorney was called and he would prefer her to not be admitted to the hospital. Patient was given 2 L IV fluid with improvement in her heart rate. Patient's antibiotics were switched from ciprofloxacin to levofloxacin to cover for pneumonia and her UTI. Given patient's symptoms at her assisted living facility, patient was tested for Covid 19. Patient is initially set for discharge, but the [facility] will not take patient back. Patient was admitted to the hospital - Diagnoses Provider Diagnoses: Hypernatremia, UTI (urinary tract infection), Leukocytosis, Dementia - Provider Notifications Time Discussed With Above Provider: 14:42 Instructed by Provider To: Other - Pt case was discussed with Dr. Chiang, who will call the facility to see what the policy is for sending pts back after COVID-19 testing, and will call back. At [address] Mcgrath that she can be sent back to the facility. Discharge ED - Sign-Out/Discharge Documenting (check all that apply): Patient Departure - Discharge Plan Condition: Stable Disposition: ADMITTED TO [facility] - Billing Disposition and Condition Condition: STABLE Disposition: Admitted to [facility] - Attestation Statements Document Initiated by Scribe: Yes Documenting Scribe: amol, deepak Provider For Whom Scribe is Documenting (Include Credential): Michael Mcgrath MD Scribe Attestation: amol Tolbert brendan, scribed for Michael Mcgrath MD on 11/28/19 at 1729. Scribe Documentation Reviewed: Yes Provider Attestation: The documentation as recorded by the amol tanner brendan accurately reflects the service I personally performed and the decisions made by Michael wells MD Status of Scribe Document: Viewed
[2019-11-26] MEDS ORDERED: Albuterol HFA INHALER* 8 gm MDI INH PRN (20:42)
[2019-11-26] MEDS ORDERED: Acetaminophen TAB* 325 MG PO PRN (20:42)
[2019-11-26 20:59] LABS: Influenza A Molecular Negative (Negative); Influenza B Molecular Negative (Negative)
[2019-11-26] MEDS ORDERED: NS 0.45% 1000 ML BAG* 1,000 ML IV SCH ×2 (21:00→21:03)
[2019-11-26 21:03] LABS: BUN/Creatinine Ratio 39.7 (8-20); Calcium 8.4 mg/dL (8.6-10.3); EGFR African American 94.8 (>60); EGFR Non-African American 78.4 (>60); Potassium 3.4 mmol/L (3.5-5.0)
[2019-11-26] MEDS: NS 0.45% 1000 ML BAG* 1,000 ML IV SCH (22:24)
[2019-11-26] MEDS: Enoxaparin(*) 40 MG/0.4 ML SYR SUBCUT SCH (23:07)
[2019-11-26] MEDS: KCL 10 MEQ/50 ML IVPREMIX* 10 MEQ/50 ML BAG IV SCH (23:07)
[2019-11-26] MEDS: Cefepime 2 GM in Dextrose(*) 2 GM/50 ML BAG IV SCH (23:38)
--- NOTE | 2019-11-27 00:36 | HP ---
CC: Dr. Chiang * HISTORY AND PHYSICAL: DATE OF ADMISSION: 11/26/19 PRIMARY CARE PROVIDER: Dr. Chiang. ATTENDING PHYSICIAN WHILE IN THE HOSPITAL: Dr. Clay * (report dictated by Kadi Huerta NP). CHIEF COMPLAINT: 1. Altered mental status. 2. Weakness. HISTORY OF PRESENT ILLNESS: The patient has a significant history of dementia and she is really unable to give much history. She has a history of echolalia. According to the notes and discussion with the staff at [facility], the patient over the last several days has been getting weaker and weaker. It was noted on 11/09/19, she was diagnosed with UTI, was started on Keflex. She took that from 11/09/19 to 11/20/19. Repeat UA on 11/21/19 showed pseudomonas and was started on Cipro. Unfortunately though, over the last couple of days, the staff have noted that she has not really been eating or drinking anything at all. She has been more confused. She has been nonverbal. She has been weaker , unable to do transfers which she can do at baseline. Also staff reports that about 2 weeks ago, her diet was changed from a regular diet to a pureed diet because she was having trouble with choking. Staff has reported that at times with the new diet, she has even had a couple of episodes where she has had trouble getting the food down at times. They noted today that her oxygen levels were jumping between 88% and 96%. They noted that she has been febrile. She had been coughing with meals about 2 weeks ago. They were concerned. They called the on-call and they recommended coming to the hospital. There has been no recent sick contacts that the long term facility is aware of. The patient at baseline will repeat what is said to her and she will follow simple commands. She came into the ER today. It was noted that on x-ray there was a possible left lower lobe pneumonia, possible recurrent UTI, and she was found to be profoundly hypernatremic. Because of these findings, we were asked to evaluate for admission. I did try discussing with the patient's POA what they had been noticing, but unfortunately I was unable to get in touch with them. I did leave a message to the healthcare proxy to call us back. I do note that she has a do not resuscitate order on the paper work from [facility]. PAST MEDICAL HISTORY: According to the old records include: 1. Dementia. 2. Diastolic CHF. 3. Depression. 4. Hyperlipidemia. PAST SURGICAL HISTORY: 1. She has had an appendectomy. 2. Right upper extremity surgery x2. HOME MEDICATIONS: Include: 1. Tea tree oil 1 application topically daily. 2. Multivitamin 2 tablets daily. 3. Tylenol Extra Strength 500 mg every 6 hours. 4. Cipro 250 mg p.o. b.i.d. 5. Wellbutrin 150 mg p.o. q.a.m. 6. MiraLax 17 g p.o. daily. 7. Omeprazole 40 mg daily. 8. Remeron 15 mg at bedtime. 9. Melatonin 10 mg p.o. at bedtime. 10. Probiotics 2 capsules daily. 11. Aspirin 81 mg daily. 12. Levaquin was initially prescribed by the ER for discharge medication, but she has not been taking that at all. ALLERGIES TO MEDICATIONS: No known drug allergies. FAMILY HISTORY: According to old notes, her parents had a history of CVAs and Parkinson. SOCIAL HISTORY: Again, according to the old notes, she is a former smoker. Surrogate decision maker is her Panfil[employer]. I do see that listed on the [employer] paperwork. I also note that she has a nonhospital DNR. REVIEW OF SYSTEMS: Unable to be obtained from the patient directly given her mental status. PHYSICAL EXAMINATION GENERAL: At this time, Ms. Taylor is a 74-year-old female patient. She is sitting in the ED stretcher. She does not appear to be in any acute distress. She appears to be well nourished and well developed. VITAL SIGNS: Blood pressure 100/65, pulse 92, respirations 18, O2 sat 95%, her temperature when she presented was 99.9. HEENT: Head: Atraumatic. Eyes: Sclerae anicteric, not pale. Pupils equal and reactive to light. Throat: Oral mucosa appears to be dry. No oropharyngeal erythema. NECK: Supple. LUNGS: She had rhonchi noted in the upper lobes, equal diaphragmatic expansion , diminished in the left lower base. HEART: Heart sounds S1, S2. Regular rate and rhythm. No murmurs, rubs, or gallops. ABDOMEN: Soft, flat, nontender. Bowel sounds were present. EXTREMITIES: Pulses were 2+ throughout. NEUROLOGIC: Again, she will awaken to tactile stimuli. She is nonverbal at this point. She is moving all 4 extremities. I do not see any gross focal deficits. Given the dementia, it is hard to do a good neuro exam given the lack of the patient participation and the fact that she has a difficult time following commands, which is her baseline. Nursing staff at [facility] did report that she can follow simple commands. SKIN: Grossly intact. DIAGNOSTIC STUDIES/LAB DATA: Labs today are revealing a WBC of 14.5, RBC of 4.25, hemoglobin of 13.5, hematocrit of 41, and platelets count of 275. Her sodium initially was 157. She received 2 liters normal saline and is now 159. Potassium is 3.6, now 3.4. Chloride was 123, now 129. Bicarb 23, BUN 29, creatinine 0.73, glucose of 107, lactic 1.4, calcium 8.4, AST 30, ALT 44, alk phos 97, albumin 3.6. Urine 1+ protein, 1+ leukocyte esterase, 3+ rbc. Flu swab negative. Saldaña virus PCR is pending. She did have a chest x-ray obtained today, which was hypoinflated when I reviewed it. Radiology read as a mild left basilar airspace opacification, atelectasis versus infiltrate. I do see there was mild infiltrate on the left lung field. Old medical records reviewed. ASSESSMENT AND PLAN: Ms. Taylor is a 74-year-old female patient presenting to the ED today with complaints of altered mental status, worsening weakness, and decreased fluid intake over the last several days. On evaluation in the ED , it was noted that she was hypernatremic and possibly has new pneumonia. COVID was tested. Initially, the patient was going to be sent home; however, given [facility] policy, they recommended that the patient needed to be admitted and ruled out. On further evaluation by myself, I do believe that she is most certainly appropriate for admission. Given her mentation, she would not be able to drink adequately to lower her sodium. My plan will be to go ahead and admit her under inpatient status for: 1. Sepsis. I suspect the source is pneumonia. COVID certainly is a possibility but is again low on my differential. Flu is negative. The sepsis could be coming from possibly urinary tract infection. I am repeating her cultures. I am going to put her on cefepime and azithromycin. She does have an infiltrate noted in the left lung. I am going to get legionella and Streptococcus pneumoniae antigen. I will also get a sputum culture if possible. There is concern for possible aspiration, and so I am going to keep her n.p.o. I have ordered aspiration precautions and swallowing evaluation in the morning. Again, she was on a pureed diet. Because of this, I have put her on cefepime and azithromycin. She was rhonchorus on exam. I did order some nebulizers. She does have evidence of severe sepsis as evidenced by the altered mental status, in addition to this the white count and the fact that her heart rate is in the 90s. She did receive 2 liters of fluid here in the ER. Her MAPs are right around in the upper 70s, which I am okay with. I will continue hydration with as needed boluses. I have consulted Dr. Hemphill given the concern for COVID, although again my suspicion is low. 2. Hypernatremia. This is probably related to the decreased intake. I did calculate her free water deficit to be about 3 liters. I do not want to correct her too quickly, so I have actually ordered half normal at 100 an hour. Her sodium did go up a little bit with the 2 liter bolus. My plan would be to start half normal at 100 an hour and watch her BMPs every 4 hours. If it is not coming down, I will switch her over to D5 to decrease the sodium. My goal is over the 24 hours try to get her right around 145 for her sodium. I will replace her potassium. I do note that it is 3.4 and I have ordered that as well. 3. Altered mental status. I suspect she has acute delirium in the setting of infection. My plan would be to treat the underlying infection. If she does not improve, we could consider neurology consult, but again she probably has acute delirium from toxic encephalopathy related to the underlying infection. Continue with supportive care. She does have some delirium associated with this. 4. History of diastolic congestive heart failure. She is actually dry. At this point, we will diurese her as needed. 5. Depression. Continue with supportive care. We will restart her medications when able. 6. Hyperlipidemia. We will start statin therapy when able. 7. DVT prophylaxis: She is high risk. I have placed her on Lovenox subcu. 8. Her code status, again she has a nonhospital DNR. We will need to, when we are able to, get in touch with the healthcare proxy and fill out a [employer] form. I did leave a message to them to call back with any questions. 9. Fluids, electrolytes, nutrition: She is n.p.o. tonight pending swallowing evaluation. If she passes, I would recommend a regular diet with whatever consistency Speech recommends. TIME SPENT: Time spent on the admission was 60 minutes, greater than half the time was spent [id number] with the patient obtaining my history of physical, the other half time was spent going over the plan of care with the patient and implementing my plan of care. I discussed the plan of care with my attending Dr. Clay, who is in agreement. KADI HUERTA NP [id number]/CPS #: [id number] NARAYAN
[2019-11-27] MEDS: KCL 10 MEQ/50 ML IVPREMIX* 10 MEQ/50 ML BAG IV SCH (00:51)
[2019-11-27] MEDS: Azithromycin 500 mg/250 ml NS 500 MG/250 ML BAG IVPB SCH ×2 (00:51→23:02)
[2019-11-27 02:27] LABS: ABS Basophils 0.1 10^3/ul (0-0.2); ABS Eosinophils 0.3 10^3/ul (0-0.6); ABS Lymphocytes 2.4 10^3/ul (1.0-4.8); ABS Monocytes 0.6 10^3/ul (0-0.8); ABS Neutrophils 6.9 10^3/ul (1.5-7.7); Eosinophil % 3.1 %; Hematocrit 32 % (35-47); Hemoglobin 10.7 g/dL (12.0-16.0); Lymphocyte % 23.2 %; Mean Corpuscular HGB Conc 33 g/dL (31-36); Mean Corpuscular Hemoglobin 32 pg (27-31); Mean Corpuscular Volume 96 fL (80-97); Mean Platelet Volume 9.1 fL (7.4-10.4); Platelet Count 198 10^3/uL (150-450); Red Blood Count 3.37 10^6 /uL (3.70-4.87); Red Cell Distribution Width 14 % (10-15); White Blood Count 10.2 10^3/uL (3.5-10.8)
[2019-11-27 02:33] LABS: INR 1.43 (0.82-1.09)
[2019-11-27 02:59] LABS: BUN/Creatinine Ratio 40.6 (8-20); Calcium 8.1 mg/dL (8.6-10.3); EGFR African American 101.2 (>60); EGFR Non-African American 83.6 (>60)
[2019-11-27] MEDS: Cefepime 2 GM in Dextrose(*) 2 GM/50 ML BAG IV SCH ×2 (09:49→22:21)
[2019-11-27] MEDS: Aspirin 81 mg CHEW TAB* 81 MG TAB.CHEW PO SCH (09:49)
[2019-11-27 09:55] LABS: BUN/Creatinine Ratio 33.8 (8-20); C Reactive Protein 138.57 mg/L (<8.01); Calcium 7.9 mg/dL (8.6-10.3); EGFR African American 102.9 (>60); EGFR Non-African American 85.1 (>60); Potassium 3.4 mmol/L (3.5-5.0)
[2019-11-27] MEDS: NS 0.45% 1000 ML BAG* 1,000 ML IV SCH ×3 (09:56→20:30)
--- NOTE | 2019-11-27 13:07 | PN ---
Subjective Date of Service: 11/27/19 Interval History: Pt does not answer questions, she only repeats back to me what I say. Objective Active Medications: Acetaminophen (Tylenol Tab*) 650 mg PO Q4H PRN PRN Reason: PAIN - MILD Albuterol (Ventolin Hfa Inhaler*) 2 puff INH Q4H PRN PRN Reason: SOB/WHEEZING Aspirin (Aspirin 81 Mg Chew Tab*) 81 mg PO DAILY [facility] Last Admin: 11/27/19 09:49 Dose: Not Given Enoxaparin Sodium (Lovenox(*)) 40 mg SUBCUT Q24H [facility] Last Admin: 11/26/19 23:07 Dose: 40 mg Azithromycin (Zithromax 500 Mg/250 Ml) 500 mg in 250 mls @ 250 mls/hr IVPB Q24H [facility] Last Admin: 11/27/19 00:51 Dose: 250 mls/hr Cefepime HCl (Maxipime 2 Gm In Dextrose Duplex (*)) 2 gm in 50 mls @ 100 mls/ hr IV Q12H [facility] Last Admin: 11/27/19 09:49 Dose: 100 mls/hr Sodium Chloride (Ns 0.45% 1000 Ml Bag*) 1,000 mls @ 125 mls/hr IV PER RATE [facility] Vital Signs - 8 hr 11/27/19 05:56 Pulse Rate 92 Blood Pressure 101/52 (mmHg) Oxygen Devices in Use Now: None Appearance: Elderly female sitting up in bed, NAD Eyes: No Scleral Icterus Ears/Nose/Mouth/Throat: Mucous Membranes Moist Respiratory: Symmetrical Chest Expansion and Respiratory Effort, Clear to Auscultation - LLL crackles Cardiovascular: NL Sounds; No Murmurs; No JVD, RRR, - - 1+ edema RLE, no LLE edema Abdominal: NL Sounds; No Tenderness; No Distention Extremities: No Clubbing, Cyanosis Skin: No Nodules or Sclerosis Neurological: - - sitting with eyes open but does not really have any meaningful interactions Result Diagrams: 11/26/19 15:50 11/27/19 09:20 Microbiology and Other Data: Microbiology 11/26/19 15:50 Urine Culture - Final Urine No Growth (<1,000 CFU/mL) 11/26/19 23:41 Nasal Screen MRSA (PCR) - Final Nasal Mrsa Not Detected 11/26/19 15:50 Legionella Urinary Antigen - Final Urine Negative Legionella Antigen Streptococcus pneumoniae Ag Screen - Final Negative S. pneumo Antigen Assess/Plan/Problems-Billing Ms Taylor is a 74 yo F who has a h/o severe dementia, echolalia, diastolic CHF and depression who presented to the ER with AMS and weakness and was admitted for treatment of pneumonia, hypernatremia and rule out COVID-19. - Patient Problems (1) Weakness Current Visit: Yes Status: Acute Code(s): R53.1 - WEAKNESS SNOMED Code(s) : 87496920 Comment: I suspect the patient's weakness is secondary to pneumonia and hypernatremia. Will ask for PT eval. (2) Pneumonia Current Visit: Yes Status: Acute Code(s): J18.9 - PNEUMONIA, UNSPECIFIED ORGANISM SNOMED Code(s): 358694654 Comment: Pt with LLL pneumonia. Continue ceftriaxone and azithromycin. S.pneumo and legionella urinary antigens negative. I doubt we will be able to obtain a sputum sample as the patient does not follow commands well. She was recently switched to a pureed diet. She is currently NPO while awaiting a swallow eval as there is concern she may have aspirated. She is being ruled out for COVID-19. (3) DVT prophylaxis Current Visit: Yes Status: Acute Code(s): SAV6659 - SNOMED Code(s): 781620072 Comment: Continue lovenox (4) Depression Current Visit: Yes Status: Acute Code(s): F32.9 - MAJOR DEPRESSIVE DISORDER , SINGLE EPISODE, UNSPECIFIED SNOMED Code(s): 60191990 Comment: Resume bupropion. (5) Dementia Current Visit: Yes Status: Acute Code(s): F03.90 - UNSPECIFIED DEMENTIA WITHOUT BEHAVIORAL DISTURBANCE SNOMED Code(s): 56822901 Comment: Continue supportive care. (6) DNR (do not resuscitate) Current Visit: Yes Status: Acute Comment:
[2019-11-27 18:02] LABS: Potassium 3.2 mmol/L (3.5-5.0)
[2019-11-27] MEDS: Enoxaparin(*) 40 MG/0.4 ML SYR SUBCUT SCH (20:26)
[2019-11-28] MEDS: NS 0.45% 1000 ML BAG* 1,000 ML IV SCH ×2 (07:43→17:49)
[2019-11-28] MEDS: BuPROPion XL* 150 MG TAB.XL PO SCH (07:47)
[2019-11-28] MEDS: Aspirin 81 mg CHEW TAB* 81 MG TAB.CHEW PO SCH (07:47)
--- NOTE | 2019-11-28 08:29 | PN ---
Subjective Date of Service: 11/28/19 Interval History: No acute overnight events. Need BMP stat for Na/K - values yesterday not repleted. Patient without complaints, although likely unable to voice complaints due to echolalia. Objective Active Medications: Acetaminophen (Tylenol Tab*) 650 mg PO Q4H PRN PRN Reason: PAIN - MILD Albuterol (Ventolin Hfa Inhaler*) 2 puff INH Q4H PRN PRN Reason: SOB/WHEEZING Aspirin (Aspirin 81 Mg Chew Tab*) 81 mg PO DAILY [facility] Last Admin: 11/28/19 07:47 Dose: 81 mg Bupropion HCl (Wellbutrin Xl *) 150 mg PO QAM [facility] Last Admin: 11/28/19 07:47 Dose: 150 mg Enoxaparin Sodium (Lovenox(*)) 40 mg SUBCUT Q24H [facility] Last Admin: 11/27/19 20:26 Dose: 40 mg Azithromycin (Zithromax 500 Mg/250 Ml) 500 mg in 250 mls @ 250 mls/hr IVPB Q24H [facility] Last Admin: 11/27/19 23:02 Dose: 250 mls/hr Cefepime HCl (Maxipime 2 Gm In Dextrose Duplex (*)) 2 gm in 50 mls @ 100 mls/ hr IV Q12H [facility] Last Admin: 11/27/19 22:21 Dose: 100 mls/hr Sodium Chloride (Ns 0.45% 1000 Ml Bag*) 1,000 mls @ 125 mls/hr IV PER RATE [facility] Last Admin: 11/28/19 07:43 Dose: 125 mls/hr Vital Signs - 8 hr 11/28/19 11/28/19 11/28/19 03:21 03:34 07:46 Temperature 97.5 F 97.8 F Pulse Rate 96 95 95 Respiratory 18 20 24 Rate Blood Pressure 97/54 107/57 (mmHg) O2 Sat by Pulse 95 96 95 Oximetry Oxygen Devices in Use Now: None Appearance: frail elderly woman in NAD Eyes: No Scleral Icterus Ears/Nose/Mouth/Throat: Clear Oropharnyx, Mucous Membranes Moist Neck: NL Appearance and Movements; NL JVP, Trachea Midline Respiratory: - - clear anteriorly Cardiovascular: NL Sounds; No Murmurs; No JVD, RRR Abdominal: NL Sounds; No Tenderness; No Distention, No Hepatosplenomegaly Extremities: - - 1+ LE edema b/l Neurological: - - only repeat what is said, does not follow commands or answer questions Result Diagrams: 11/26/19 15:50 11/28/19 08:33 Microbiology and Other Data: Microbiology 11/26/19 15:50 Urine Culture - Final Urine No Growth (<1,000 CFU/mL) 11/26/19 23:41 Nasal Screen MRSA (PCR) - Final Nasal Mrsa Not Detected 11/26/19 15:50 Legionella Urinary Antigen - Final Urine Negative Legionella Antigen Streptococcus pneumoniae Ag Screen - Final Negative S. pneumo Antigen Assess/Plan/Problems-Billing Ms Taylor is a 74W with severe dementia, echolalia, HFpEF not on diuretics, and depression who presented to the ER with AMS and weakness and was admitted for treatment of pneumonia, hypernatremia, and pending test for COVID-19. - Patient Problems (1) Hypernatremia Comment: Decreased PO for several days, with FWD of 3L on admission. - cont IVF with BMP checks (2) Pneumonia Comment: Fevers, cough, and hypoxia at [facility]. Possible LLE infiltrate here, with leukocytosis (although this is likely hemoconcentration). S.pneumo and legionella urinary antigens negative. Pt coughing with meals but no e/o aspiration on exam by S&S - recommends pureed diet. - possibly on cefepime due to h/o pseudomonal UTI (although only 10-25k CFU)? No e/o UTI now, will switch to CTX for possible CAP; 11/25 - 12/02 - pending COVID-19 test (3) Weakness Comment: I suspect the patient's weakness is secondary to pneumonia and hypernatremia. Will ask for PT eval. (4) Dementia Comment: Continue supportive care. (5) Depression Comment: Resume bupropion. (6) DVT prophylaxis Comment: Continue lovenox (7) DNR (do not resuscitate) Comment:
[2019-11-28 08:58] LABS: BUN/Creatinine Ratio 26.4 (8-20); EGFR African American 96.3 (>60); EGFR Non-African American 79.6 (>60); Potassium 3.2 mmol/L (3.5-5.0)
[2019-11-28 09:28] LABS: Phosphorus 3.1 mg/dL (2.5-5.0)
[2019-11-28] MEDS: cefTRIAXone(*) 1 GM in NS 0.9% 50 ML* 50 ML IVPB SCH (10:45)
[2019-11-28] MEDS ORDERED: Potassium Phosphate IV* 30 MMOLE in NS 0.9% 250 ML* 250 ML IVPB ONE (10:46)
[2019-11-28] MEDS: Enoxaparin(*) 40 MG/0.4 ML SYR SUBCUT SCH (22:25)
[2019-11-29] MEDS: NS 0.45% 1000 ML BAG* 1,000 ML IV SCH (04:20)
[2019-11-29 06:34] LABS: BUN/Creatinine Ratio 20.3 (8-20); CRP High Sensitivity 53.1 mg/L (<2.00); Calcium 7.9 mg/dL (8.6-10.3); EGFR African American 121.2 (>60); EGFR Non-African American 100.2 (>60); Magnesium 1.9 mg/dL (1.9-2.7); Phosphorus 2.8 mg/dL (2.5-5.0); Potassium 3.1 mmol/L (3.5-5.0)
[2019-11-29] MEDS ORDERED: Potassium Chlor TAB* 20 MEQ TAB.ER PO ONE ×2 (08:26→16:47)
[2019-11-29] MEDS ORDERED: Potassium Phosphate IV* 30 MMOLE in NS 0.9% 250 ML* 250 ML IVPB ONE (09:00)
[2019-11-29] MEDS: Aspirin 81 mg CHEW TAB* 81 MG TAB.CHEW PO SCH (09:31)
[2019-11-29] MEDS: BuPROPion XL* 150 MG TAB.XL PO SCH (09:31)
[2019-11-29] MEDS: cefTRIAXone(*) 1 GM in NS 0.9% 50 ML* 50 ML IVPB SCH (12:45)
[2019-11-29 14:22] LABS: BUN/Creatinine Ratio 16.9 (8-20); Calcium 8.1 mg/dL (8.6-10.3); EGFR African American 121.2 (>60); EGFR Non-African American 100.2 (>60); Magnesium 1.9 mg/dL (1.9-2.7); Potassium 3.4 mmol/L (3.5-5.0)
--- NOTE | 2019-11-29 16:53 | PN ---
Subjective Date of Service: 11/29/19 Interval History: No acute events overnight. Negative COVID test and likely alternative for symptoms (bacterial PNA vs aspiration), so iso discontinued. Patient does not verbalize on exam, only repeats questions asked of her. Objective Active Medications: Acetaminophen (Tylenol Tab*) 650 mg PO Q4H PRN PRN Reason: PAIN - MILD Albuterol (Ventolin Hfa Inhaler*) 2 puff INH Q4H PRN PRN Reason: SOB/WHEEZING Aspirin (Aspirin 81 Mg Chew Tab*) 81 mg PO DAILY [facility] Last Admin: 11/29/19 09:31 Dose: 81 mg Bupropion HCl (Wellbutrin Xl *) 150 mg PO QAM [facility] Last Admin: 11/29/19 09:31 Dose: 150 mg Enoxaparin Sodium (Lovenox(*)) 40 mg SUBCUT Q24H [facility] Last Admin: 11/28/19 22:25 Dose: 40 mg Ceftriaxone Sodium 1 gm/ (Sodium Chloride) 50 mls @ 100 mls/hr IVPB Q24H [facility] Last Admin: 11/29/19 12:45 Dose: 100 mls/hr Vital Signs - 8 hr 11/29/19 11:23 Temperature 97.6 F Pulse Rate 79 Respiratory 16 Rate Blood Pressure 108/74 (mmHg) O2 Sat by Pulse 100 Oximetry Oxygen Devices in Use Now: None Appearance: frail elderly woman in nAD Eyes: No Scleral Icterus Ears/Nose/Mouth/Throat: Clear Oropharnyx, Mucous Membranes Moist Respiratory: - - clear anteriorly Cardiovascular: NL Sounds; No Murmurs; No JVD, RRR Abdominal: NL Sounds; No Tenderness; No Distention, No Hepatosplenomegaly Neurological: - - only repeats what is said and cannot answer questions or follow commands Result Diagrams: 11/26/19 15:50 11/29/19 13:56 Microbiology and Other Data: Microbiology 11/26/19 15:50 Urine Culture - Final Urine No Growth (<1,000 CFU/mL) 11/26/19 23:41 Nasal Screen MRSA (PCR) - Final Nasal Mrsa Not Detected 11/26/19 15:50 Legionella Urinary Antigen - Final Urine Negative Legionella Antigen Streptococcus pneumoniae Ag Screen - Final Negative S. pneumo Antigen Assess/Plan/Problems-Billing Ms Taylor is a 74W with severe dementia, echolalia, HFpEF not on diuretics, and depression who presented to the ER with AMS and weakness and was admitted for treatment of pneumonia, hypernatremia, and pending test for COVID-19. - Patient Problems (1) Pneumonia Comment: Fevers, cough, and hypoxia at [facility]. Possible LLE infiltrate here, with leukocytosis (although this is likely hemoconcentration). S.pneumo and legionella urinary antigens negative. Pt coughing with meals but no e/o aspiration on exam by S&S - recommends pureed diet. - switch IV CTX to cefdinir PO, for possible CAP; 11/25 - 12/02 (2) Hypernatremia Comment: Decreased PO for several days, with FWD of 3L on admission. - resolved (3) Weakness Comment: I suspect the patient's weakness is secondary to pneumonia and hypernatremia. - pending PT (4) Dementia Comment: Continue supportive care. (5) Depression Comment: Resume bupropion. (6) DVT prophylaxis Comment: Continue lovenox (7) DNR (do not resuscitate) Comment:
[2019-11-29] MEDS: KCL 20 MEQ/100 ML IVPREMIX* 20 MEQ/100 ML BAG IV SCH ×2 (17:21→21:48)
[2019-11-29] MEDS: Enoxaparin(*) 40 MG/0.4 ML SYR SUBCUT SCH (21:49)
[2019-11-30 06:36] LABS: Hematocrit 28 % (35-47); Hemoglobin 9.9 g/dL (12.0-16.0); Mean Corpuscular HGB Conc 36 g/dL (31-36); Mean Corpuscular Hemoglobin 32 pg (27-31); Mean Corpuscular Volume 91 fL (80-97); Mean Platelet Volume 8.2 fL (7.4-10.4); Platelet Count 218 10^3/uL (150-450); Red Blood Count 3.07 10^6 /uL (3.70-4.87); Red Cell Distribution Width 13 % (10-15); White Blood Count 7.4 10^3/uL (3.5-10.8)
[2019-11-30 06:55] LABS: BUN/Creatinine Ratio 16.7 (8-20); EGFR African American 153.8 (>60); EGFR Non-African American 127.1 (>60); Magnesium 1.8 mg/dL (1.9-2.7); Potassium 3.9 mmol/L (3.5-5.0)
[2019-11-30] MEDS ORDERED: Cefdinir cap* 300 MG CAP PO SCH (09:00)
[2019-11-30] MEDS ORDERED: Magnesium Sulfate 1 GM IV* 1 GM/100 ML BAG IV ONE (09:07)
[2019-11-30] MEDS: BuPROPion XL* 150 MG TAB.XL PO SCH (10:18)
[2019-11-30] MEDS: Aspirin 81 mg CHEW TAB* 81 MG TAB.CHEW PO SCH (10:18)
[2019-11-30 14:11] VITALS: BP 119/66
--- NOTE | 2019-12-01 21:34 | DS ---
CC: Lilly Chiang MD * DISCHARGE SUMMARY: DATE OF ADMISSION: 11/26/19 DATE OF DISCHARGE: 11/30/19 PRIMARY CARE PHYSICIAN: Lilly Chiang MD. PRIMARY DIAGNOSES: 1. Hypernatremia. 2. Pneumonia versus aspiration pneumonitis. SECONDARY DIAGNOSES: 1. Advanced dementia. 2. Depression. DISCHARGE MEDICATIONS: 1. Cefdinir 300 mg twice a day for 3 more days. 2. Aspirin 81 mg daily. 3. Mirtazapine 15 mg at bedtime. 4. Bupropion 150 mg in the morning. 5. Melatonin 10 mg at bedtime. 6. Probiotics daily. 7. Albuterol 2 puffs every 4 hours as needed for shortness of breath. HISTORY OF PRESENT ILLNESS: Ms. Taylor is a 74-year-old woman with significant dementia and depression and echolalia, who is presenting from [facility] with altered mental status and weakness. The patient is unable to give medical history, she only repeats what is asked, so history is obtained from discussion with staff at [facility]. They note that approximately 2 weeks prior to presentation, the patient was diagnosed with UTI and was started on Keflex, which she took for approximately 11 days. A day after stopping Keflex, she had UA, which showed pseudomonas, so then she was started on ciprofloxacin. Since then, the staff has noted that she has not been eating or drinking and she has been acting progressively more confused. The patient has been weaker, unable to do transfers, which normally she can do at baseline. Staff reports that about 2 weeks ago, her diet was changed from a regular to a pureed because she was having trouble with choking. Staff reports that even with the new diet, she has episodes where she is having trouble getting the food down. On the day of presentation, they noted her oxygen saturations were between 80% and 96% and that she has been febrile. The patient has had no recent sick contacts. In the emergency room, on x-ray, there was a possible left lower lobe pneumonia , although more likely consolidation. She had increased serum sodium, and due to these findings, she was asked to be admitted to the hospitalist service for further care. She was initiated on cefepime and azithromycin. However, because it was thought that at most the patient was having chronic aspiration pneumonitis, had been persistent without fevers and her leukocytosis resolved after IV fluids, her antibiotics were narrowed to cover typical community- acquired pneumonia with ceftriaxone and she was discharged to complete this course of cefdinir. Her blood cultures and urine antigens were negative. The patient had speech and swallow examination and was recommended that she have pureed diet with thin liquids. For her hypernatremia, the patient was slowly resuscitated with IV fluids and over the course of her hospitalization, her sodium slowly decreased from 155 to 141. The patient seemed to be at her baseline by the time of discharge. PERTINENT DIAGNOSTIC STUDIES/LAB DATA: CBC likely initially hemoconcentrated, by discharge, leukocytosis resolved and hemoglobin was 10 with MCV 91. BMP significant for sodium of 155 on admission, which resolved to 141 by discharge with creatinine 0.48. The patient required significant potassium repletion throughout her time. Urine cultures and blood cultures negative. Chest x-ray with hyperinflated lungs with mild left basilar airspace opacification, which could be atelectasis versus infiltrate. DISCHARGE PLAN: The patient will be discharged back to her assisted living facility to follow up with Dr. Lilly Chiang. She can complete a course of cefdinir, although it is more likely that the patient has been having chronic aspirations. We will still cover her with antibiotics given her reported fevers as an outpatient and elevated CRP on admission. No other changes are made to her home medications. Of note, it was thought that the patient's altered mental status could be from chronic aspiration causing hypoxia, but also the fact that she had been started on ciprofloxacin, which is known to cause alteration in mental status in the elderly, this medication should be avoided in the future. It is recommended that the patient has a pureed diet with thin liquids to prevent aspiration. She should have oral fluid intake encouraged given her history of hypernatremia, which was treated in the hospital. The patient was not on a water pill prior to presentation and she was not started on one given recent dehydration, however, her primary care physician can continue to follow up her volume status and consider starting a diuretic if indicated as an outpatient. DIET: Regular diet, pureed texture with thin liquids. ACTIVITY: As tolerated. DISPOSITION: [facility]. CONDITION: Improved. TIME SPENT: Approximately 60 minutes was spent on discharge of this patient, more than half of which spent with care coordination at bedside for interview and exam. [id number]/[facility] #: [id number] [facility]ALTH[facility]
== END 2019-11-30 14:30 | DRG 194 ==
LOC: ED 14:29 → MED 20:33 → MEDTELE 11-29 21:15
PROVIDERS: ADMIT Family Medicine; ATTEND Internal Medicine
DX: J18.9 Pneumonia, unspecified organism (principal); E87.0 Hyperosmolality and hypernatremia; N39.0 Urinary tract infection, site not specified; I50.32 Chronic diastolic (congestive) heart failure; Z66 Do not resuscitate; F03.90 Unspecified dementia, unspecified severity, without behavioral disturbance, psychotic disturbance, mood disturbance, and anxiety; F32.9 Major depressive disorder, single episode, unspecified; R41.82 Altered mental status, unspecified; T36.8X5A Adverse effect of other systemic antibiotics, initial encounter; R09.02 Hypoxemia; E78.00 Pure hypercholesterolemia, unspecified; M19.042 Primary osteoarthritis, left hand; M19.041 Primary osteoarthritis, right hand; E78.5 Hyperlipidemia, unspecified; R48.8 Other symbolic dysfunctions; Z87.891 Personal history of nicotine dependence; Z79.82 Long term (current) use of aspirin; Z87.440 Personal history of urinary (tract) infections
CPT/HCPCS: 36415; 71045; 80048; 80051; 80053; 81003; 81015; 83605; 83735; 84100; 85025; 85027; 85610; 86140; 86141; 87040; 87086; 87641; 87899; 99284; A9270-GY; J0456; J0692; J0696; J1650; J3475; J3480; U0002